=== PATIENT | female | born 2000 | race Hispanic/Latino ===

== ENCOUNTER 2023-05-09 18:22 | Emergency (ER) | payer MEDICAID, SELFPAY ==
--- NOTE | 2023-05-09 18:27 | ED.URI ---
HPI - URI/Sore Throat General Chief Complaint: Upper Respiratory Infection Stated Complaint: Asthma//Sinus Time Seen by Provider: 05/09/23 18:27 Source: patient Mode of arrival: ambulatory Limitations: no limitations History of Present Illness HPI Narrative: Kailee is a 22-year-old female patient presenting to the clinic today with complaints of sinus congestion/asthma. She reports she is almost 21 weeks as well. Denies any vaginal discharge, vaginal bleeding, or abdominal pain. MD elicited complaint: sore throat and nasal congestion Related Data Allergies Allergy/AdvReac Type Severity Reaction Status Date / Time No Known Allergies Allergy Verified 05/09/23 18:52 Review of Systems Review of Systems: Pertinent positives per HPI. Patient denies any fever, chills, rash, headache, visual changes, dizziness, cough, shortness of breath, chest pain, palpitations, nausea, vomiting, diarrhea, constipation, abdominal pain, or any urinary issues. PMFSH Comments At the time of my signature, I reviewed and agree with the nursing past medical, surgical, social, and family history. There is no relevant family history pertinent to the patient complaint. Exam Narrative: General: Well-developed, well nourished, in no apparent distress Head: Normocephalic, atraumatic Eyes: Pupils equally round and reactive to light bilaterally, EOM intact, sclera and conjunctive clear, no discharge, lids normal Ears: TMs intact and clear, ear canals clear, no drainage, grossly hearing normal. Nose: Nares patent, clear discharge, no inflammation, no sinus tenderness. Mouth: Oral pharynx red without lesions or masses, good dentition, MMM. Neck: Supple, trachea midline, no enlargement of anterior or posterior cervical nodes, no thyroid masses or goiter palpable. Cardio: Regular rate and rhythm, s1 and s2 normal, no murmur appreciated. Resp: Clear to auscultation bilaterally, no rhonchi, rales, wheezing or rubs Course Course Emergency Course: Portions of this record may have been created with voice recognition software. Level of Care: Express Care Visit Vital Signs Vital signs: Vital signs reviewed MDM - URI/Sore Throat MDM Narrative Medical decision making narrative: At the time of visit patient is resting comfortably on the exam table. Patient appears to be nontoxic. Patient reports she has a history of asthma. Labs: strep test was negative in the clinic today. Plan: I suspect patient has URI. Prescription for Flonase, Zyrtec, and albuterol inhaler was sent to the pharmacy. Supportive measures were discussed with the patient and they voiced understanding discharge instructions and agrees to treatment plan. Return precautions reviewed Differential Diagnosis Differential diagnosis: Likely upper respiratory infection, otitis media, sinusitis, viral infection, influenza and pharyngitis Discharge Plan Discharge Clinical Impression: URI (upper respiratory infection) Qualifiers: URI type: unspecified viral URI Qualified Code(s): J06.9 - Acute upper respiratory infection, unspecified Patient Disposition: Home, Self-Care Condition: Stable Instructions: Antibiotic Form, Upper Respiratory Infection (ED) Additional Instructions: Instrucciones URI Las pruebas de estreptococos son negativas en la cl?josé miguel hoy. Enviaremos un cultivo y, si resulta positivo, lo llamaremos y le recetaremos antibi?ticos en salina momento. [place] los medicamentos recetados ?nicamente pito inhalador de albuterol, Flonase y Zyrtec. Aumente los l?quidos y mant?ngase sukhdeep hidratado. Tylenol para el dolor/fiebre Flonase y Zyrtec seg?n las indicaciones Vicks vapor frot para abrir los senos nasales Enjuagues sinusales para la congesti?n Cepacol spray, pastillas para la tos, pastillas para la garganta, t? caliente con miel/matthews?n, g?rgaras con agua salada para calmar la garganta Dieta BRAT para la diarrea L?quidos kelly x 24 hora
[2023-05-09 18:38] VITALS: BP 138/76; PULSE 118; RESP 20; TEMP 37; O2SAT 100
== END 2023-05-09 19:05 | disposition home or self-care (01) ==
PROVIDERS: Emergency Provider Nurse Practitioner Family
DX: O99.512 Diseases of the respiratory system complicating pregnancy, second trimester (principal); Z3A.21 21 weeks gestation of pregnancy; J06.9 Acute upper respiratory infection, unspecified; J45.909 Unspecified asthma, uncomplicated
CPT/HCPCS: 87081; 87880; 99213; G0463

== ENCOUNTER 2023-07-09 18:34 | Observation (INO) | payer OTHER, SELFPAY ==
[2023-07-09 19:00] VITALS: BP 140/64; PULSE 114
[2023-07-09 19:17] VITALS: BP 136/70; PULSE 109
[2023-07-09 19:28] LABS: Appearance Urine Clear (Clear); Bacteria Urine None Seen /hpf; Bilirubin Urine Negative (Negative); Blood Urine Negative (Negative); Color Urine Yellow (Yellow); Glucose Urine UA Negative (Negative); Ketones Urine Negative (Negative); Leukocyte Esterase Ur Trace LEU/UL (Negative); Nitrate Urine Negative (Negative); Non Pathogenic Casts 0-2; Protein Urine Negative (Negative); RBC Urine 0-2 /hpf (0-2); Specific Grav Ur 1.011 (1.001-1.035); Squamous Epithelial Cell Urine Occasional /hpf (Few); Urobilinogen Urine 0.2 mg/dL (<2.0)
[2023-07-09 19:41] LABS: Add Urine Microscopic? YES
--- NOTE | 2023-07-09 20:23 | ADMGEN ---
This patient, Kailee Wade, was admitted to [facility]. Patient/family oriented to hospital policies and general routines including ID bracelet, bed and alarms, visiting hours, pain management, procedures, bathroom and other care routines, personal items, smoking policy, room service/diet, and visiting hours. Information on how to activate the Rapid Response Team has been discussed. Patient/Family are encouraged to report perceived risks to care and to ask questions if they do not understand what they are told or what they should do.
[2023-07-09 20:36] VITALS: BMI 38.1
--- NOTE | 2023-07-09 20:38 | PC.NURSE ---
Spoke with MANJULA Ray at 1944 regarding patient's symptoms upon arrival. Patient states that she presented today from office due to increased contractions. She states she has no complications with this besides a UTI she had around 20 days ago that was treated with an antibiotic. She states that she has had increased flank and back pain the last week. When asked how often her contractions were, she responded that she has had around 8 total this month, but they are becoming more frequent this week. She denies any bleeding, but states she has urinary urgency and pain. She denies pain when performing CVA tenderness assessment. Her states that her SVE exam showed that she was dilated to a 1 and 80 percent effaced. Orders received to give celestone per Anil Horton. Reported urinary results. Orders received to send urine for culture and send marcobid 100g BID to pharmacy.
--- NOTE | 2023-07-09 20:46 | PC.NURSE ---
Reported to Anil Horton at 194 that patient has had 1-2 contractions throughout her time in the department. Baby is FHR cat 1 tracing. MANJULA Hinton called back at 1949 to make sure patient knows that she will need to come back to L&D immediately if her contractions increase in frequency. She states to let patient know that increased urgency can be caused from the baby sitting in low position. Will explain this in discharge instructions.
[2023-07-09] MEDS: NITROFURANTOIN MONOHYD MACROCR 100 MG CAP PO (21:11)
[2023-07-09] MEDS: BETAMETHASONE SOD PHOS/ACETATE 30 MG/5 ML VIAL 12 MG IM (21:12)
--- NOTE | 2023-07-09 21:23 | PC.NURSE ---
#[id number] Bob Jara landscape supervisor used at [phone]
--- NOTE | 2023-07-09 21:25 | PC.NURSE ---
#[id number] chi used for executive director or discharge instructions and medication administration.
--- NOTE | 2023-07-10 08:32 | P.PNOB_ITS ---
OB - Triage/Final Diagnosis Visit Information Date of evaluation: 07/09/23 Reason for evaluation: threatened labor Comments/Additional reasons for admission: I have assessed the risk for this patient, Kailee Wade, and determined that she would benefit from observation care. Evaluation Laboratory results: Laboratory Tests 07/09/23 19:13 Urine Color Yellow Urine Appearance Clear Urine pH 7.0 Ur Specific [place] 1.011 Urine Protein Negative Urine Glucose (UA) Negative Urine Ketones Negative Ur Blood (Man) Negative Urine Nitrate Negative Urine Bilirubin Negative Urine Urobilinogen 0.2 Leukocyte Esterase Rfl Trace H Urine RBC 0-2 Urine WBC 6-10 H Ur Squamous Epith Cells Occasional Urine Bacteria None seen Urine Casts 0-2 Vital signs: Vital Signs - 24 hr 07/09/23 19:00 07/09/23 19:17 07/09/23 20:20 Pulse Rate 114 H 109 H Blood Pressure 140/64 136/70 Oxygen Delivery Room Air
== END 2023-07-09 21:20 | disposition home or self-care (01) ==
PROVIDERS: Admitting Provider Obstetrics & Gynecology; Visit Provider Obstetrics & Gynecology
DX: O47.03 False labor before 37 completed weeks of gestation, third trimester (principal); Z3A.30 30 weeks gestation of pregnancy
CPT/HCPCS: 81001; 87086; 96372; A9270; G0378; G0379; J0702

== ENCOUNTER 2023-07-10 18:35 | Outpatient (CLI) | payer OTHER, SELFPAY ==
[2023-07-10] MEDS: BETAMETHASONE SOD PHOS/ACETATE 30 MG/5 ML VIAL 12 MG IM (18:57)
== END 2023-07-10 18:36 | disposition home or self-care (01) ==
LOC: ANHOBOP 18:43
PROVIDERS: Visit Provider Obstetrics & Gynecology
DX: Z36.84 Encounter for antenatal screening for fetal lung maturity (principal)
CPT/HCPCS: 96372; J0702

== ENCOUNTER 2023-08-12 17:48 | Outpatient (CLI) | payer OTHER, SELFPAY ==
[2023-08-12 18:12] VITALS: BP 140/77; PULSE 103
[2023-08-12 18:33] VITALS: BP 140/75; PULSE 99
[2023-08-12 18:39] LABS: Basophils Absolute Auto 0.1 K/mm3 (0.0-0.1); Basophils Percent Auto 0.4 % (0.2-1.2); Eosinophils Absolute Auto 0.2 K/mm3 (0-0.3); Eosinophils Percent Auto 1.2 % (0-4.4); Hematocrit 34.8 % (37.0-47.0); Hemoglobin 11.9 g/dL (12.0-15.0); Immature Granulocyte Absolute 0.12 K/mm3 (0.00-0.031); Immature Granulocyte Percent A 0.8 % (0-0.5); Lymphocytes Absolute Auto 2.03 K/mm3 (0.9-3.2); Lymphocytes Percent Auto 14.2 % (18.3-44.2); Mean Corpuscular HGB Conc 34.2 g/dl (32-36); Mean Corpuscular Hemoglobin 28.4 pg (26-34); Mean Corpuscular Volume 83.1 fl (80-100); Mean Platelet Volume 9.8 fl (7.4-10.4); Monocytes Absolute Auto 0.9 K/mm3 (0.1-0.6); Monocytes Percent Auto 6.3 % (2.6-8.5); Neutrophils Percent Auto 77.1 % (45.5-73.1); Platelet Count Result 325 k/mm3 (150-375); Red Blood Count 4.19 M/mm3 (4.2-5.4); Red Cell Distribution Width 13.8 % (11.5-14.5); White Blood Count 14.3 K/mm3 (4.5-10.0)
[2023-08-12 18:48] LABS: Creatinine Urine 62.3 mg/dL; Total Protein Urine Random 19 mg/dL
[2023-08-12 18:50] LABS: Alanine Aminotransferase 25 U/L (6-35); Albumin Level 3.6 g/dL (3.5-5.1); Alkaline Phosphatase 129 U/L (38-126); Anion Gap 9 mmol/L (4-12); Aspartate Amino Transferase 31 U/L (14-36); Bilirubin,Total 0.4 mg/dL (0.2-1.3); Blood Urea Nitrogen 4 mg/dL (7-17); Calcium 8.8 mg/dL (8.4-10.2); Carbon Dioxide 22 mmol/L (22-30); Chloride 108 mmol/L (98-107); Estimated Glomerular Filt Rate > 60; Glucose 115 mg/dL (65-110); Potassium 2.9 mmol/L (3.4-5.0); Sodium 139 mmol/L (137-145); Uric Acid 4.2 mg/dL (2.5-7.5)
[2023-08-12 19:07] LABS: Appearance Urine Clear (Clear); Bacteria Urine None Seen /hpf; Bilirubin Urine Negative (Negative); Blood Urine Negative (Negative); Color Urine Yellow (Yellow); Glucose Urine UA Negative (Negative); Ketones Urine Negative (Negative); Leukocyte Esterase Ur 3+ LEU/UL (Negative); Nitrate Urine Negative (Negative); Non Pathogenic Casts 0-2; Protein Urine Negative (Negative); RBC Urine 0-2 /hpf (0-2); Squamous Epithelial Cell Urine Occasional /hpf (Few); Urobilinogen Urine 0.2 mg/dL (<2.0); WBC Urine 21-50 /hpf (0-3)
[2023-08-12 19:08] LABS: Add Urine Microscopic? YES
[2023-08-12 19:20] VITALS: TEMP 36.3
[2023-08-12 19:25] VITALS: BMI 31.2
--- NOTE | 2023-08-12 19:25 | PC.NURSE ---
Addendum entered by Sydney Baca RN 08/12/23 22:04: Leasing Associate Gabrielle #[id number]. Original Note: Leasing Associate used to do admission with pt. Pt complaining of swelling in her feet and unable to empty her bladder. States that she has had a UTI for 3months.
[2023-08-12 19:36] VITALS: BP 139/77; PULSE 93
--- NOTE | 2023-08-12 19:42 | PC.NURSE ---
Called Dr. Molina with pt status. Lab results and BPs given. Informed of complaints of being unable to empty bladder for 2 days. Pt voided small amounts x2 since admission. 7 contractions noted in 1hr, but since voiding contractions have decreased. Pt denies feeling contractions.Orders received to scan bladder and call with results.
--- NOTE | 2023-08-12 19:50 | PC.NURSE ---
Bladder scanned per post RN. 49cc noted in bladder.
--- NOTE | 2023-08-12 19:55 | PC.NURSE ---
Called Dr. Molina with bladder scan results. June D/C home. Instruct pt to waste picker antibiotic that was sent to pharmacy days ago in the office and take as directed.
--- NOTE | 2023-08-12 20:05 | PC.NURSE ---
Crystal Flat Grinder used for discharge instructions (Luciano [id number])
== END 2023-08-12 20:10 | disposition home or self-care (01) ==
LOC: ANHOBOP 17:54 → ANHOBPP 17:57
PROVIDERS: Visit Provider Obstetrics & Gynecology
DX: O13.9 Gestational [pregnancy-induced] hypertension without significant proteinuria, unspecified trimester (principal)
CPT/HCPCS: 36415; 59025; 80053; 81001; 82570; 84156; 84550; 85025; 87086; 87088; 99199